=== PATIENT | female | born 1990 | race Caucasian/White ===

== ENCOUNTER 2023-05-20 06:22 | Inpatient (IN) | payer BC ==
[2023-05-20] VITALS (20 sets, daily range): BP systolic 122–145; BP diastolic 60–91; PULSE 58–88; TEMP 98.6–100.7
[~2023-05-20] VITALS: Ht 170.2 cm; Wt 107.3 kg
[~2023-05-20 06:22] MED LIST: IBU800 M1 PO; PERCOCET 325 MG1 TA2 PO; PRENATAL
--- NOTE | 2023-05-20 06:30 | NUR ---
Pt arrived on unit ambulatory for scheduled induction for a demise. Pt denies any vaginal bleeding and reports some cramping yesterday and last night. Pt and oriented to the room, plan of care reviewed and call light within reach.
[2023-05-20 07:23] LABS: BASO % 0.2 % (0.0-2.0); EOS % 0.3 % (0.0-4.0); GRAN # 4.6 K/mm3 (1.4-6.5); HEMATOCRIT 39.9 % (37.0-47.0); HEMOGLOBIN 13.7 g/dl (12.5-16.0); LYMPH % 16.1 % (20.0-51.0); MEAN CELL VOLUME 91 fl (80.0-100.0); MEAN CORPUSCULAR HEMOGLOBIN 31 pg (27-31); MEAN CORPUSCULAR HGB CONC 34 g/dl (33.0-37.0); MEAN PLATELET VOLUME 9.4 fl (7.4-10.4); MONO # 0.4 K/mm3 (0.1-0.6); MONO % 6.1 % (1.7-9.3); PLATELET COUNT 229 K/mm3 (130-400); RED BLOOD COUNT 4.39 M/mm3 (4.10-5.30); REDCELL DISTRIBUTION WIDTH-CV 13.3 % (11.5-14.5)
[2023-05-20 07:45] LABS: ALBUMIN 3.4 gm/dL (3.5-5.0); BILIRUBIN,TOTAL 0.6 mg/dL (0.2-1.2); CALCIUM 9.6 mg/dL (8.4-10.2); CREATININE, serum 0.7 mg/dL (0.57-1.11); POTASSIUM 3.6 mmol/L (3.5-4.5); TOTAL PROTEIN 7.5 gm/dL (6.2-8.1)
[2023-05-20 08:05] LABS: THYROID STIMULATING HORMONE 1.828 uIU/mL (0.350-4.940)
--- NOTE | 2023-05-20 10:25 | NUR ---
Pt up to the bathroom and reports feeling some "weird pressure" in her vagina and requested this RN to do an exam. SVE FT/thick/-3
--- NOTE | 2023-05-20 11:45 | NUR ---
Dr. Perez at the bedside. Plan of care reviewed. SVE done and Cooks Cervical ripening balloon placed by Dr. Perez without complications and pt tolerated it well. The balloon was placed using 60ml NS for uterine balloon and 60ml NS used for vaginal balloon. Cytotec also placed vaginally by Dr. Perez. See EMAR for details.
--- NOTE | 2023-05-20 12:45 | NUR ---
Pt reports feeling cramping type contractions every few minutes. Difficult tracing per toco due to estimated age. Attempted to adjust toco monitor.
--- NOTE | 2023-05-20 16:05 | NUR ---
Dr. Perez at the bedside. SVE done, cooks balloon placement checked and cytotec placed. See EMAR for details. Plan of care reviewed with pt and at the bedside.
--- NOTE | 2023-05-20 17:20 | NUR ---
Pt reports feeling contractions every 3 minutes. Difficult tracing per toco due to estimated age. Attempted to adjust toco monitor.
[2023-05-20] MEDS ORDERED: ASPIRIN 81M81 MG/TA2 (17:22)
--- NOTE | 2023-05-20 17:59 | NUR ---
Pt sitting up for epidural placement per pt's request. SHERON Boswell at the bedside. Timeout done. Test dose done. See anesthesia record for details. Assisted pt back to supine position.
--- NOTE | 2023-05-20 19:00 | NUR ---
DIFFICULTY TRACING CTXs DUE TO 17WEEK GESTATION AND MATERNAL POSITION IN LEFT WEDGE. TOCO ADJUSTED. PT NOW COMFORTABLE WITH EPIDURAL AND IS UNABLE TO FEEL IF/WHEN CTX ARE OCCURRING. PT HAD PREVIOUSLY STATES CTXs EVERY 3 MINUTES.
--- NOTE | 2023-05-20 19:10 | NUR ---
PERICARE PROVIDED, TRACTION APPLIED TO COOK'S CATH AND RETAPED TO INNER LEFT THIGH. TOCO ADJUSTED.
--- NOTE | 2023-05-20 19:57 | NUR ---
WEAVER PLACED AND SVE PERFORMED. UNABLE TO DETERMINE DILATION DUE TO PLACEMENT OF COOK'S CATH, BUT SROM BELIEVED TO HAVE OCCURRED A HANDFUL OF DARK BROWN FLUID WAS NOTED WITH EXAM.
--- NOTE | 2023-05-20 22:55 | NUR ---
2225- PT CALLS OUT WITH CONCERNS OF INCREASED VAGINAL PRESSURE, LEFT SIDED ABDOMINAL PAIN WITH CTXs, AND MORE AMNIOTIC FLUID IS COMING OUT. CHUX PAD HAS MODERATE AMOUNT OF DARK BROWN AMNIOTIC FLUID. 2227- COOK'S BALLOON OUT WITH SMALL AMOUNT OF TENSION. SPONTANEOUS DELIVERY OF 17 WEEK MALE DEMISE IMMEDIATELY FOLLOWING. CORD CLAMPED BY THIS NURSE AND CUT BY FOB. PARENTS REQUEST BABY TO WARMER (NO HEAT). Deepa BANKS RN TO CONTACT DR. LEACH TO COME TO HOSPITAL. 2235- PT REQUESTS TO HOLD BABY WHILE WAITING FOR DR. LEACH TO ARRIVE. BABY WRAPPED IN BLANKET AND GIVEN TO MOTHER. PARENTS TEARFUL BUT APPROPRIATE. MOTHER HOLD BABY FOR APPROXIMATELY 5 MINUTES THEN REQUEST HE BE TAKEN BACK TO [facility]ARMER. 2245- DR LEACH IN ROOM. BED BROKEN DOWN FOR DELIVERY OF PLACENTA. 2248- SPONTANEOUS DELIVERY OF PLACENTA. DR. LEACH PERFORMS BIMANUAL EXAM AND REMOVES MEMBRANES/PLACENTA. ORDERS HEMABATE 250MCG IM. NO REPAIR NECESSARY PER DR. LEACH. QBL 400ML. 2255- HEMABATE GIVEN, SEE EMAR. DR. LEACH REMAINS IN ROOM TO MONITOR FOR INCREASED BLEEDING. BLEEDING REMAINS STABLE. DR. LEACH REQUESTS PT REMAIN AT THE HOSPITAL TILL MORNING, IF BLEEDING REMAINS STABLE PT MAY DC IN THE MORNING AFTER DR. LEACH ROUNDS. PT VERBALIZES UNDERSTANDING, AGREES WITH PLAN OF CARE. PLACENTA AND ANORA KIT TO BE SENT TO LAB. 2300- RECOVERY STARTED.
--- NOTE | 2023-05-20 23:05 | NUR ---
PT REPORTS LOOSE STOOL IN BED. PT ALSO BEGINS VOMITING. ZOFRAN AND LAMOTRIL GIVEN, SEE EMAR. Deepa BANKS RN IN ROOM TO ASSIST WITH PERICARE AND BED CHANGE. FRESH CHUX AND PERIPAD APPLIED.
--- NOTE | 2023-05-20 23:44 | NUR ---
Contacted [facility] and spoke with Rehana. [facility] Referral #[id number]
[2023-05-21] VITALS: BP 134/57; PULSE 96
--- NOTE | 2023-05-21 00:10 | NUR ---
PT CALLS OUT WITH COMPLIANTS OF 2ND LOOSE STOOL IN BED. 2ND DOSE OF LOMOTIL GIVEN, SEE EMAR. PERICARE GIVEN BY THIS NURSE, NEW CHUX AND PERIPAD APPLIED.
[2023-05-21 00:30] VITALS: BP 136/67; PULSE 76
[2023-05-21 01:00] VITALS: BP 134/68; PULSE 75
[2023-05-21 02:00] VITALS: BP 129/67; PULSE 80; TEMP 98.8
--- NOTE | 2023-05-21 02:15 | NUR ---
3RD SMALL LOOSE STOOL NOTED. PT HAS SENSATION BACKS TO HER LEGS. EPIDURAL CATH REMOVED, BLUE TIP INTACT. WEAVER DCd, 350MLS URINE OUT. PT TO BATHROOM AMBULATORY. ASSISTED WITH PERICARE. CHANGED INTO PERIPAD AND MESH UNDERWEAR. Deepa BANKS RN IN ROOM TO ASSIST WITH BED CHANGED. PT AMBULATORY BACK TO BED WITHOUT DIFFICULTY. PT RATES BACK PAIN AT 4/10, WILL GIVE MOTRIN.
[2023-05-21 05:15] VITALS: BP 113/69; PULSE 80; TEMP 98.5
--- NOTE | 2023-05-21 08:30 | NUR ---
[facility] at the bedside with pt and . Questions about process and timeline for cremation reviewed and answered. Fetus off unit and in the care of home per pt's request.
[2023-05-21 08:45] VITALS: BP 131/80; PULSE 81; TEMP 98.2
[2023-05-21] MEDS ORDERED: IBU800 M1 PO (08:46)
--- NOTE | 2023-05-21 09:00 | NUR ---
Discharge instructions and follow up care reviewed with pt at the bedside. Pt verbalized an understanding, agreed with the plan and states no questions or concerns at this time.
[2023-05-24 01:29] LABS: BETA-2 GPI IGG AABS <20.0 CU (<=20.0); BETA-2 GPI IGM AABS <20.0 CU (<=20.0)
[2023-05-24 06:57] LABS: TOXOPLASMA AB, IGG <3.0 IU/mL (0.0-7.1); TOXOPLASMA AB, IGM <3.0 AU/mL (0.0-7.9); TOXOPLASMA IGG VALUE Negative (Negative); TOXOPLASMA IGM VALUE Negative (Negative)
== END 2023-05-21 09:05 | disposition home or self-care (01) | DRG 807 ==
LOC: LDRO 06:22 → LDR 06:26 → LDRO 22:40 → LDR 05-21 09:05
PROVIDERS: ADMIT Student in an Organized Health Care Education/Training Program
PROC: 10E0XZZ Delivery of Products of Conception, External Approach (ICD-10-PCS; principal; 2023-05-20)
PROC: 0U7C7ZZ Dilation of Cervix, Via Natural or Artificial Opening (ICD-10-PCS; 2023-05-20)
PROC: 3E0P7VZ Introduction of Hormone into Female Reproductive, Via Natural or Artificial Opening (ICD-10-PCS; 2023-05-20)
PROC: 3E0234Z Introduction of Serum, Toxoid and Vaccine into Muscle, Percutaneous Approach (ICD-10-PCS; 2023-05-20)
DX: O36.4XX0 Maternal care for intrauterine death, not applicable or unspecified (principal); Z37.1 Single stillbirth; O34.12 Maternal care for benign tumor of corpus uteri, second trimester; D25.1 Intramural leiomyoma of uterus; Q51.810 Arcuate uterus; O26.899 Other specified pregnancy related conditions, unspecified trimester; O34.02 Maternal care for unspecified congenital malformation of uterus, second trimester; O99.214 Obesity complicating childbirth; Z3A.21 21 weeks gestation of pregnancy
CPT/HCPCS: J2270; J2405; J2590; J2791; J2795; J7120